=== PATIENT | female | born 1960 | race Caucasian/White ===

== ENCOUNTER 2017-04-14 21:36 | Inpatient (IN) | payer MEDICARE, MEDICAID ==
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
--- NOTE | 2017-04-14 22:58 | RADIOLOGY REPORT (SQ) ---
EXAM DESCRIPTION: CT HEAD WITHOUT COMPLETED DATE/TIME: 04/14/2017 10:32 pm REASON FOR STUDY: hx of TBI, confusion COMPARISON: None. TECHNIQUE: Axial images acquired through the brain without intravenous contrast. Images reviewed wi th bone, brain and subdural windows. Images stored on PACS. All CT scanners at this facility use dose modulation, iterative reconstruction, and/or weight based d osing when appropriate to reduce radiation dose to as low as reasonably achievable (ALARA). [facility]: Dose Right [facility]: CareDose [facility]: Dose Right [facility]: Teradose 4D [facility]: Smart [employer] RADIATION DOSE: Up-to-date CT equipment and radiation dose reduction techniques were employed. CTDIv ol: 48.6 mGy. DLP: 954 mGy-cm. mGy. LIMITATIONS: None. FINDINGS: VENTRICLES: Normal size and contour. CEREBRUM: No masses. No hemorrhage. No midline shift. No evidence for acute infarction. Normal gra y/white matter differentiation. No areas of low density in the white matter. CEREBELLUM: No masses. No hemorrhage. No alteration of density. No evidence for acute infarction. EXTRAAXIAL SPACES: No fluid collections. No masses. ORBITS AND GLOBE: No intra- or extraconal masses. Normal contour of globe without masses. CALVARIUM: No fracture. PARANASAL SINUSES: No fluid or mucosal thickening. SOFT TISSUES: No mass or hematoma. OTHER: No other significant finding. IMPRESSION: NORMAL BRAIN CT WITHOUT CONTRAST. EVIDENCE OF ACUTE STROKE: NO. COMMENT: Quality ID # [id number]: Final reports with documentation of one or more dose reduction techniques (e.g., Automated exposure control, adjustment of the mA and/or kV according to patient size, use of iterative reconstruction technique) TECHNICAL DOCUMENTATION: JOB ID: [id number] [employer]- All Rights Reserved
[2017-04-15] LABS: ABSOLUTE BASOPHILS # (AUTO) 0.1 10^3/uL (0.0-0.2); ABSOLUTE EOSINOPHILS # (AUTO) 0.2 10^3/uL (0.0-0.6); ABSOLUTE LYMPHOCYTES (AUTO) 3.1 10^3/uL (0.5-4.7); ABSOLUTE MONOCYTES (AUTO) 0.7 10^3/uL (0.1-1.4); BASOPHILS % (AUTO) 0.6 % (0-2); EOSINOPHILS % (AUTO) 2.2 % (0-6); HEMATOCRIT 37.7 % (36.0-47.0); HEMOGLOBIN 12.7 g/dL (12.0-15.5); HGB HCT DIFFERENCE 0.4; LYMPHOCYTES % (AUTO) 30.4 % (13-45); MEAN CORPUSCULAR HEMOGLOBIN 30.2 pg (27.0-33.4); MEAN CORPUSCULAR HGB CONC 33.6 g/dL (32.0-36.0); MEAN CORPUSCULAR VOLUME 90 fl (80-97); MONOCYTES % (AUTO) 6.9 % (3-13); RED CELL DISTRIBUTION WIDTH 13.8 % (11.5-14.0); SEGMENTED NEUTROPHILS % (AUTO) 59.9 % (42-78); WHITE BLOOD COUNT 10.1 10^3/uL (4.0-10.5)
[2017-04-15 00:17] LABS: ALANINE AMINOTRANSFERASE 28 U/L (9-52); ALBUMIN 3.9 g/dL (3.5-5.0); ALKALINE PHOSPHATASE 88 U/L (38-126); ANION GAP 12 (5-19); ASPARTATE AMINO TRANSFERASE 20 U/L (14-36); BILIRUBIN,DIRECT 0.3 mg/dL (0.0-0.4); BILIRUBIN,TOTAL 0.3 mg/dL (0.2-1.3); BLOOD UREA NITROGEN 5 mg/dL (7-20); CALCIUM 9.5 mg/dL (8.4-10.2); CARBON DIOXIDE 28 mmol/L (22-30); CHLORIDE 100 mmol/L (98-107); CREATININE RESULT 0.69 mg/dL (0.52-1.25); GLUCOSE 106 mg/dL (75-110); POTASSIUM 3.6 mmol/L (3.6-5.0); SODIUM 139.5 mmol/L (137-145); TOTAL PROTEIN 6.4 g/dL (6.3-8.2)
[2017-04-15] MEDS ORDERED: AMMONIA INHALANTS 10 AMPUL/BOX IH ONE (00:55)
[2017-04-15] MEDS ORDERED: ACETYLCYSTEINE INJ 6000 MG/30 ML IV ONE ×4 (01:12→06:13)
[2017-04-15] MEDS ORDERED: IPRATROPIUM/ALBUTEROL 0.5-2.5 MG/3 ML AMPUL NEB PRN (01:22)
[2017-04-15] MEDS ORDERED: MAG HYDROX/AL HYDROX/SIMETH SUSP 30 ML UDCUP PO PRN (01:22)
[2017-04-15] MEDS ORDERED: OLANZAPINE INJ/PF 10 MG SDV IM PRN (01:26)
[2017-04-15 01:43] LABS: PROTHROMBIN TIME 12.9 SEC (11.4-15.4)
[2017-04-15] MEDS ORDERED: NALOXONE HCL INJ 2 MG/2 ML DISP.SYRIN IV PRN (06:33)
--- NOTE | 2017-04-15 06:44 | PDOC H&P ---
History of Present Illness Admission Date/PCP: 04/15/17 01:35 Patient complains of: Altered mental status History of Present Illness: ROEL LIN is a 56 year old female with a past medical history of bipolar disorder, PTSD, anxiety, traumatic brain injury. Presenting via EMS after being found with hyperventilation and anxious state. She is initially uncooperative but reports to nurse taking "a bunch of Lunesta and Seroquel", tox screen positive for Tylenol greater than 100. She is referred to the hospitalist for suicide attempt and multidrug overdose. The patient's medication bag is at bedside which includes intranasal Narcan. During attempted interview the patient is somnolent IV Narcan is administered resulting in a hypervigilant state but remains uncooperative. Patient will not answer questions. Patient has no previous admissions to our facility. Past Medical History GI Medical History: Reports: Hiatal Hernia Psychiatric Medical History: Reports: Depression, General Anxiety Disorder, Post Traumatic Stress Disorder Traumatic Medical History: Reports: Traumatic Brain Injury Social History Smoking Status: Unknown if Ever Smoked Family History Family History: Other - Unobtainable Parental Family History Reviewed: No - Unobtainable Children Family History Reviewed: No - Unobtainable Sibling(s) Family History Reviewed.: No - Unobtainable Review of Systems ROS unobtainable: Due to mental status Physical Exam Vital Signs: Temp Pulse Resp BP Pulse Ox 19 122/72 99 04/15/17 03:01 04/15/17 02:36 04/15/17 03:01 Intake & Output 04/13/17 04/14/17 04/15/17 11:59 11:59 11:59 Weight 65.3 kg General appearance: PRESENT: no acute distress. ABSENT: cooperative Head exam: PRESENT: atraumatic, normocephalic Eye exam: PRESENT: conjunctiva pink, EOMI, PERRLA. ABSENT: scleral icterus Ear exam: PRESENT: normal external ear exam Mouth exam: PRESENT: moist, tongue midline Neck exam: ABSENT: carotid bruit, JVD, lymphadenopathy, thyromegaly Respiratory exam: PRESENT: clear to auscultation micheal. ABSENT: accessory muscle use, rales, rhonchi, wheezes Cardiovascular exam: PRESENT: RRR. ABSENT: diastolic murmur, rubs, systolic murmur Pulses: PRESENT: normal dorsalis pedis pul Vascular exam: PRESENT: normal capillary refill GI/Abdominal exam: PRESENT: normal bowel sounds, soft. ABSENT: distended, guarding, mass, organolmegaly, rebound, tenderness Rectal exam: PRESENT: deferred Extremities exam: PRESENT: calf tenderness Neurological exam: PRESENT: altered, awake, CN II-XII grossly intact. ABSENT: motor sensory deficit Psychiatric exam: PRESENT: appropriate affect, normal mood. ABSENT: homicidal ideation, suicidal ideation Skin exam: PRESENT: dry, intact, warm. ABSENT: cyanosis, rash Results Impressions: Head CT 04/14/17 22:12 IMPRESSION: NORMAL BRAIN CT WITHOUT CONTRAST. EVIDENCE OF ACUTE STROKE: NO. Assessment & Plan - Diagnosis (1) Acetaminophen overdose Qualifiers: Encounter type: initial encounter Injury intent: undetermined intent Qualified Code(s): T39.1X4A - Poisoning by 4-Aminophenol derivatives, undetermined, initial encounter Is this a current diagnosis for this admission?: Yes Plan: ICU admission, mental health consult, N-acetylcysteine, follow-up acetaminophen level, LFTs, INR. (2) Overdose of antipsychotic Is this a current diagnosis for this admission?: Yes Plan: ICU admission, telemetry monitoring, mental health consult follow-up chemistry. (3) Overdose of opiate or related narcotic Is this a current diagnosis for this admission?: Yes Plan: ICU admission, supportive care, Narcan as needed, mental health consult and referral - Time Time Spent: 50 to 70 Minutes - Inpatient Certification Medical Necessity: Need Close Monitoring Due to Risk of Patient Decompensation
[2017-04-15 07:20] LABS: APPEARANCE,URINE CLEAR; BILIRUBIN,URINE NEGATIVE (NEGATIVE); GLUCOSE, URINE 50 mg/dL (NEGATIVE); KETONES,URINE 80 mg/dL (NEGATIVE); LEUKOCYTE ESTERASE,URINE NEGATIVE (NEGATIVE); NITRITE,URINE NEGATIVE (NEGATIVE); PROTEIN,URINE 30 mg/dL (NEGATIVE); URINE SPECIFIC GRAVITY 1.024; UROBILINOGEN,URINE NEGATIVE mg/dL (<2.0)
[2017-04-15 07:39] LABS: URINE BARBITURATES SCREEN NEGATIVE; URINE METHADONE SCREEN NEGATIVE; URINE PHENCYCLIDINE SCREEN NEGATIVE
[2017-04-15 07:46] LABS: ALANINE AMINOTRANSFERASE 29 U/L (9-52); ALBUMIN 4.1 g/dL (3.5-5.0); ALKALINE PHOSPHATASE 28 U/L (38-126); ASPARTATE AMINO TRANSFERASE 18 U/L (14-36); BILIRUBIN,DIRECT 0.2 mg/dL (0.0-0.4); BILIRUBIN,TOTAL 0.4 mg/dL (0.2-1.3); TOTAL PROTEIN 6.5 g/dL (6.3-8.2)
[2017-04-15 08:24] LABS: URINE OPIATES LOW UNCONFIRMED POSITIVE
--- NOTE | 2017-04-15 08:43 | Progress Note ---
Provider Note Provider Note: Patient admitted early this morning: Chart reviewed, patient examined. 56-year- old female with history of bipolar disorder, PTSD, anxiety, traumatic brain injury. She presented via EMS after being found to be hyper ventilation and anxious state. She was initially uncooperative but did report to the nurse that she took" a bunch of Lunesta and Seroquel", tox screen was positive for Tylenol greater than 100. EKG revealed normal sinus rhythm at 79 bpm, QTc 455. Head CT scan was negative for acute abnormalities. She was admitted to to the ICU on the hospitalist service for suicide attempt and multi drug overdose. She has been started on N-acetylcysteine with plans to follow-up acetaminophen levels, LFTs, INRs. Psychiatry will be consulted and will see the patient when able. Plan as per H&P IVFs; N-acetylcysteine; repeat labs; Suicide precautions; bedside sitter; pysch consult
--- NOTE | 2017-04-15 09:16 | EKG REPORT ---
SEVERITY:- NORMAL ECG - SINUS RHYTHM : Confirmed by: Jamir Clarke 15-Apr-2017 09:15:46
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
[2017-04-15] MEDS ORDERED: INFLUENZA ADLT QUAD (36MOS+) 2017-18 VAC 0.5 ML SYR IM PRN (10:02)
[2017-04-15] MEDS: DOCUSATE SODIUM 100 MG CAPSULE PO SCH ×2 (10:11→17:34)
[2017-04-15] MEDS: HEPARIN SOD (PORCINE) 5,000 UNIT/ML 1 ML SYRINGE SUBCUT SCH ×3 (10:11→21:42)
[2017-04-15] MEDS ORDERED: ACETYLCYSTEINE IV ONE (11:00)
[2017-04-15] MEDS ORDERED: DEXTROSE 5% IV ONE (11:00)
[2017-04-15] MEDS ORDERED: WATER IV ONE (11:00)
[2017-04-15] MEDS: LORAZEPAM INJ 2 MG/1 ML VIAL IV PRN (16:42)
[2017-04-15] MEDS: NORMAL SALINE 1000 ML 1,000 ML IV SCH ×2 (16:48→20:25)
--- NOTE | 2017-04-15 16:57 | PSYCHOLOGICAL NOTE ---
Psych Note - Psych Note Psych Note: Patient is a 56-year-old female who presented to [facility] ER due to suspected polypharmacy overdose with unknown intent. Patient was admitted to the hospitalist services in ICU for critical care and telemetry management. Reviewed patient EMR in preparation for evaluation. Patient was noted by provider and nursing staff to continue to be agitated and disoriented. Patient will be evaluated at a later time. Patient is recommended to continue under involuntary commitment for further evaluation and disposition. I consulted with Dr. Otoole in regards to the care and management of this patient.
[2017-04-16 02:14] LABS: ALANINE AMINOTRANSFERASE 30 U/L (9-52); ALBUMIN 3.4 g/dL (3.5-5.0); ALKALINE PHOSPHATASE 85 U/L (38-126); ASPARTATE AMINO TRANSFERASE 16 U/L (14-36); BILIRUBIN,DIRECT 0.3 mg/dL (0.0-0.4); BILIRUBIN,TOTAL 0.6 mg/dL (0.2-1.3); TOTAL PROTEIN 5.6 g/dL (6.3-8.2)
[2017-04-16 05:29] LABS: ABSOLUTE BASOPHILS # (AUTO) 0.1 10^3/uL (0.0-0.2); ABSOLUTE EOSINOPHILS # (AUTO) 0.1 10^3/uL (0.0-0.6); ABSOLUTE LYMPHOCYTES (AUTO) 2.2 10^3/uL (0.5-4.7); ABSOLUTE MONOCYTES (AUTO) 0.6 10^3/uL (0.1-1.4); ABSOLUTE NEUT (AUTO) 8.8 10^3/uL (1.7-8.2); BASOPHILS % (AUTO) 0.6 % (0-2); EOSINOPHILS % (AUTO) 0.8 % (0-6); HEMATOCRIT 38.7 % (36.0-47.0); HEMOGLOBIN 13.2 g/dL (12.0-15.5); HGB HCT DIFFERENCE 0.9; MEAN CORPUSCULAR HGB CONC 34.2 g/dL (32.0-36.0); MEAN CORPUSCULAR VOLUME 88 fl (80-97); MONOCYTES % (AUTO) 5.3 % (3-13); RED BLOOD COUNT 4.41 10^6/uL (3.72-5.28); RED CELL DISTRIBUTION WIDTH 13.6 % (11.5-14.0); SEGMENTED NEUTROPHILS % (AUTO) 74.3 % (42-78); WHITE BLOOD COUNT 11.8 10^3/uL (4.0-10.5)
[2017-04-16] MEDS: HEPARIN SOD (PORCINE) 5,000 UNIT/ML 1 ML SYRINGE SUBCUT SCH ×3 (05:43→21:50)
[2017-04-16] MEDS: NORMAL SALINE 1000 ML 1,000 ML IV SCH (05:45)
[2017-04-16 05:58] LABS: ALANINE AMINOTRANSFERASE 27 U/L (9-52); ALBUMIN 3.4 g/dL (3.5-5.0); ALKALINE PHOSPHATASE 93 U/L (38-126); ANION GAP 12 (5-19); ASPARTATE AMINO TRANSFERASE 19 U/L (14-36); BILIRUBIN,DIRECT 0.3 mg/dL (0.0-0.4); BILIRUBIN,TOTAL 0.6 mg/dL (0.2-1.3); BLOOD UREA NITROGEN 4 mg/dL (7-20); CALCIUM 9.2 mg/dL (8.4-10.2); CARBON DIOXIDE 22 mmol/L (22-30); CHLORIDE 111 mmol/L (98-107); CREATININE RESULT 0.54 mg/dL (0.52-1.25); GLUCOSE 115 mg/dL (75-110); POTASSIUM 3.7 mmol/L (3.6-5.0); SODIUM 144.7 mmol/L (137-145); TOTAL PROTEIN 5.8 g/dL (6.3-8.2)
[2017-04-16] MEDS: DOCUSATE SODIUM 100 MG CAPSULE PO SCH ×2 (10:48→17:44)
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
[2017-04-16] MEDS ORDERED: ACETAMINOPHEN 325 MG TABLET PO PRN (16:47)
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
[2017-04-16] MEDS: DIVALPROEX SODIUM 500 MG TAB.SR.24H PO SCH (20:06)
[2017-04-16] MEDS: BUSPIRONE HCL 10 MG TABLET PO SCH (21:49)
[2017-04-16] MEDS: LORAZEPAM INJ 2 MG/1 ML VIAL IV PRN (23:19)
[2017-04-17] MEDS: HEPARIN SOD (PORCINE) 5,000 UNIT/ML 1 ML SYRINGE SUBCUT SCH ×3 (06:19→21:15)
[2017-04-17] MEDS: DIVALPROEX SODIUM 500 MG TAB.SR.24H PO SCH ×2 (11:10→18:22)
[2017-04-17] MEDS: AMLODIPINE BESYLATE 5 MG TABLET PO SCH (11:12)
[2017-04-17] MEDS: DOCUSATE SODIUM 100 MG CAPSULE PO SCH ×2 (11:13→17:13)
[2017-04-17] MEDS: BUSPIRONE HCL 10 MG TABLET PO SCH ×2 (11:13→21:15)
--- NOTE | 2017-04-17 14:51 | PDOC PROGRESS REPORT ---
Subjective Progress Note for:: 04/17/17 Subjective:: ROEL LIN is a 56 year old female with a past medical history of bipolar disorder, PTSD, anxiety, traumatic brain injury. She presented via EMS after being found with hyperventilating and anxious in her apartment by neighbor. She is initially uncooperative but reports to nurse taking "a bunch of Lunesta and Seroquel". Her tox screen was positive for Tylenol greater than 100. She is referred to the hospitalist for suicide attempt and multidrug overdose. During her initial evaluation by the ED as well as hospitalist, she was not cooperative. Later, she was more cooperative and provided more information to psychiatry. (See their note 04/16/2017) She has been in the ICU for the past 48 hours without a decline in clinical status. Psychiatry recommended continuing under involuntary commitment for further evaluation and disposition. They recommended starting Buspar 10 mg BID and depakote 500 mg BID. Currently, she is without complaints. Last evening was uneventful. She is still asking to go outside and smoke. Physical Exam Vital Signs: Temp Pulse Resp BP Pulse Ox 99.1 F 82 19 160/98 H 97 04/17/17 12:00 04/17/17 12:00 04/17/17 12:00 04/17/17 12:00 04/17/17 12:00 Intake & Output 04/16/17 04/17/17 04/18/17 06:59 06:59 06:59 Intake Total 5949 1395 Output Total 7200 4350 Balance -1251 -2955 Weight 64.5 kg 61.9 kg General appearance: PRESENT: no acute distress, well-developed, well-nourished Head exam: PRESENT: atraumatic, normocephalic Eye exam: PRESENT: conjunctiva pink, EOMI, PERRLA. ABSENT: scleral icterus Neck exam: ABSENT: carotid bruit, JVD, lymphadenopathy, thyromegaly Respiratory exam: PRESENT: clear to auscultation micheal. ABSENT: rales, rhonchi, wheezes Cardiovascular exam: PRESENT: RRR. ABSENT: diastolic murmur, rubs, systolic murmur GI/Abdominal exam: PRESENT: normal bowel sounds, soft. ABSENT: distended, guarding, mass, organolmegaly, rebound, tenderness Neurological exam: PRESENT: alert, awake, oriented to person, oriented to place , oriented to time, oriented to situation, CN II-XII grossly intact. ABSENT: motor sensory deficit Psychiatric exam: PRESENT: appropriate affect, normal mood. ABSENT: homicidal ideation, suicidal ideation Skin exam: PRESENT: dry, intact, warm. ABSENT: cyanosis, rash Results Laboratory Results: 04/16/17 05:12 04/16/17 05:12 Impressions: Head CT 04/14/17 22:12 IMPRESSION: NORMAL BRAIN CT WITHOUT CONTRAST. EVIDENCE OF ACUTE STROKE: NO. Assessment & Plan - Diagnosis (1) Acetaminophen overdose Qualifiers: Encounter type: subsequent encounter Injury intent: undetermined intent Qualified Code(s): T39.1X4D - Poisoning by 4-Aminophenol derivatives, undetermined, subsequent encounter Is this a current diagnosis for this admission?: Yes Plan: Her acetaminophen level was less than 10, yesterday. Transaminases have been normal. (2) Overdose of antipsychotic Is this a current diagnosis for this admission?: Yes Plan: She repeatedly told the psychiatrist that she simply wanted to go to sleep. She is not suicidal, but seemed to be at risk for self-harm yesterday. Today, she is much calmer and more cooperative. Currently, I am awaiting psychiatry final recommendations regarding her disposition. (3) Overdose of opiate or related narcotic Is this a current diagnosis for this admission?: Yes Plan: See above. (4) Tobacco abuse Is this a current diagnosis for this admission?: Yes Plan: Recommended smoking cessation. She declined a nicotine patch - Time Time Spent with patient: 15-24 minutes Within: within 24 hours - Inpatient Certification Based on my medical assessment, after consideration of the patient's comorbidities, presenting symptoms, or acuity I expect that the services needed warrant INPATIENT care.: Yes I certify that my determination is in accordance with my understanding of Medicare's requirements for reasonable and necessary INPATIENT services [42 CFR 412.3e].: Yes Medical Necessity: Risk of Complication if Not Cared For in Hospital
[2017-04-17] MEDS: CALCIUM CARBONATE 500 MG TAB.CHEW PO PRN (17:13)
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
[2017-04-18] MEDS: HEPARIN SOD (PORCINE) 5,000 UNIT/ML 1 ML SYRINGE SUBCUT SCH (05:40)
[2017-04-18] MEDS: DIVALPROEX SODIUM 500 MG TAB.SR.24H PO SCH (07:04)
[2017-04-18] MEDS: AMLODIPINE BESYLATE 5 MG TABLET PO SCH (09:45)
[2017-04-18] MEDS: DOCUSATE SODIUM 100 MG CAPSULE PO SCH (09:45)
[2017-04-18] MEDS: BUSPIRONE HCL 10 MG TABLET PO SCH (09:45)
[2017-04-18] MEDS: CALCIUM CARBONATE 500 MG TAB.CHEW PO PRN (09:57)
--- NOTE | 2017-04-18 10:17 | PDOC PROGRESS REPORT ---
Subjective Progress Note for:: 04/18/17 Physical Exam Vital Signs: Temp Pulse Resp BP Pulse Ox 98.1 F 73 18 139/79 H 95 04/18/17 08:00 04/18/17 08:05 04/18/17 08:00 04/18/17 08:00 04/18/17 08:00 Intake & Output 04/17/17 04/18/17 04/19/17 06:59 06:59 06:59 Intake Total 1395 650 Output Total 4350 1550 Balance -2955 -900 Weight 61.9 kg 60.8 kg Results Laboratory Results: 04/16/17 05:12 04/16/17 05:12 Impressions: Head CT 04/14/17 22:12 IMPRESSION: NORMAL BRAIN CT WITHOUT CONTRAST. EVIDENCE OF ACUTE STROKE: NO. Assessment & Plan - Diagnosis (1) Acetaminophen overdose Qualifiers: Encounter type: subsequent encounter Injury intent: undetermined intent Qualified Code(s): T39.1X4D - Poisoning by 4-Aminophenol derivatives, undetermined, subsequent encounter Is this a current diagnosis for this admission?: Yes Plan: Patient is doing well. She is stable for discharge to inpatient psychiatric facility from medical standpoint if deemed necessary by psychiatry. (2) Overdose of antipsychotic Is this a current diagnosis for this admission?: Yes Plan: See above (3) Overdose of opiate or related narcotic Is this a current diagnosis for this admission?: Yes Plan: No evidence for respiratory depression (4) Bipolar disorder Is this a current diagnosis for this admission?: Yes (5) Traumatic brain injury Is this a current diagnosis for this admission?: Yes (6) Anxiety Is this a current diagnosis for this admission?: Yes - Time Time Spent with patient: 15-24 minutes - Inpatient Certification Medical Necessity: Need Close Monitoring Due to Risk of Patient Decompensation - Plan Summary Plan Summary: Await psychiatry reevaluation. Patient is medically cleared to be discharged from inpatient care medical standpoint
[2017-04-18 12:04] VITALS: BP 143/80
--- NOTE | 2017-04-18 12:40 | PDOC DISCHARGE SUMMARY ---
General - Admit/Disc Date/PCP Admission Date/Primary Care Provider: 04/15/17 01:35 Discharge Date: 04/18/17 - Discharge Diagnosis (1) Acetaminophen overdose Is this a current diagnosis for this admission?: Yes Summary: Treated with N-acetylcysteine. (2) Overdose of antipsychotic Is this a current diagnosis for this admission?: Yes (3) Overdose of opiate or related narcotic Is this a current diagnosis for this admission?: Yes (4) Bipolar disorder Is this a current diagnosis for this admission?: Yes (5) Traumatic brain injury Is this a current diagnosis for this admission?: Yes (6) Anxiety Is this a current diagnosis for this admission?: Yes - Additional Information Discharge Diet: Cardiac Discharge Activity: Activity As Tolerated Home Medications: Albuterol Sulfate [Proair HFA] 2 puff IH Q6HP PRN 04/17/17 Cetirizine HCl [Zyrtec 10 mg Tablet] 10 mg PO DAILY 04/17/17 Cyclosporine 0.05% Oph Emulsio [Restasis 0.05% Oph Emulsion Pf 0.4 ml] 1 drop OU Q12 04/17/17 Dextromethorphan HBr/Quinidine [Nuedexta 20-10 mg Capsule] 1 cap PO Q12 Diazepam [Valium] 10 mg PO TIDP PRN 04/17/17 Ergocalciferol (Vitamin D2) [Vitamin D2] 50,000 units PO MO@1000 04/17/17 Hydrocodone/Acetaminophen [[place] 7.5-325 mg Tablet] 1 tab PO QIDP PRN 04/17/17 Lubiprostone [Amitiza 24 Mcg Capsule] 24 mcg PO Q12 04/17/17 Meclizine HCl [Antivert 25 mg Tablet] 25 mg PO Q8 04/17/17 Prazosin HCl [Minipress] 1 mg PO QHS 04/17/17 Quetiapine Fumarate [Seroquel Xr] 50 mg PO QHS 04/17/17 Rosuvastatin Calcium [Crestor 20 mg Tablet] 20 mg PO QHS 04/17/17 Amlodipine Besylate [Norvasc 5 mg Tablet] 5 mg PO DAILY #30 tablet 04/18/17 Buspirone HCl [Buspar 10 mg Tablet] 10 mg PO Q12 #60 tablet 04/18/17 Carbamazepine [Tegretol Xr 100 mg Tab.sr] 500 mg PO Q12 #60 tab.sr.12h 04/18/17 Flu Vacc [id number] [id number] Up/Pf [Fluzone Adlt Quad [id number] Vac 0.5 ml Syr] 0.5 ml IM .DISCHARGE PRN disp.syrin 04/18/17 History of Present Illness History of Present Illness: ROEL LIN is a 56 year old female who has a history of traumatic brain injury as well as bipolar disorder and anxiety who presented after being found by EMS with hyperventilation and very anxious. The patient's neighbor found her uncooperative and tremulous. The patient reported to the nurse that she took a bunch of Lunesta and Seroquel. Patient has a tox screen positive for Tylenol greater than 100 and the patient was admitted for suicide attempt from polysubstance. Patient also has a history of heavy narcotics and was noted to have intranasal Narcan in her home medication bag. Hospital Course Hospital Course: 56-year-old female with history of traumatic brain disorder as well as bipolar disorder, PTSD and anxiety who presented after being found by the neighbor being very anxious, confused and tremulous. The patient reports taking a handful of medications that included Lunesta, Seroquel and pain medications. The patient was admitted to the intensive care unit and was started on N- acetylcysteine because of elevated Tylenol level. She did well with this and had no problems with liver damage. The patient also did by report take narcotics and was monitored closely but did not require any Narcan. The patient was seen by psychiatry after being made an involuntary commitment because of the suicide attempt. The patient improved and no longer was suicidal. Psychiatry recommended starting the patient on BuSpar and Tegretol which was done. She will be sent home on those medications in addition to her usual outpatient medications. Patient does have a traumatic brain injury but appears to be competent and agrees to safety. Physical Exam Vital Signs: Temp Pulse Resp BP Pulse Ox 99.1 F 76 15 143/80 H 98 04/18/17 12:00 04/18/17 12:00 04/18/17 12:00 04/18/17 12:00 04/18/17 12:00 Intake & Output 04/17/17 04/18/17 04/19/17 06:59 06:59 06:59 Intake Total 1395 650 300 Output Total 4350 1550 400 Balance -2955 -900 -100 Weight 61.9 kg 60.8 kg General appearance: PRESENT: no acute distress Eye exam: PRESENT: conjunctiva pink. ABSENT: scleral icterus Mouth exam: PRESENT: moist, tongue midline Neck exam: ABSENT: JVD Respiratory exam: PRESENT: clear to auscultation micheal. ABSENT: rales, rhonchi, wheezes Cardiovascular exam: PRESENT: RRR. ABSENT: diastolic murmur, rubs, systolic murmur GI/Abdominal exam: PRESENT: normal bowel sounds, soft. ABSENT: distended, guarding, mass, organolmegaly, rebound, tenderness Extremities exam: PRESENT: full ROM. ABSENT: calf tenderness, clubbing, pedal edema Neurological exam: PRESENT: alert, awake, oriented to person, oriented to place , oriented to time, oriented to situation, CN II-XII grossly intact. ABSENT: motor sensory deficit Psychiatric exam: PRESENT: appropriate affect Skin exam: PRESENT: dry, intact, warm. ABSENT: cyanosis, rash Results Laboratory Results: 04/16/17 05:12 04/16/17 05:12 Impressions: Head CT 04/14/17 22:12 IMPRESSION: NORMAL BRAIN CT WITHOUT CONTRAST. EVIDENCE OF ACUTE STROKE: NO. Qualifiers PATEINT BEING DISCHARGED WITH ANY OF THE FOLLOWING DIAGNOSIS?: No Plan Discharge Plan: Patient is discharged home. Will follow up with primary care in 1-2 weeks. Time Spent: Greater than 30 Minutes
[2017-04-18] MEDS ORDERED: CARBAMAZEPINE 100 MG TAB.SR.12H PO ONE (13:00)
--- NOTE | 2017-04-18 13:24 | PSYCHOLOGICAL NOTE ---
Psych Note - Psych Note Psych Note: Patient is a 56 year old female who has been in ICU and to hospitalist services due to potential polypharm overdose of unknown intent. She does have a documented TBI. 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 She identified she sees Zuleika Carrasco at [facility] for medication management. She noted she is supposed to be taking Nuedexta for stuttering and Prazosin for sleep due to her TBI. She further stated [facility] recently started her on Seroquel Extended Release 50MG QHS. She reported she sees Yomaira at the [facility] for therapy. She stated her PCM is Nida Kelley at [facility]. She denied current SI and commented "I made a mistake, I wasn't feeling good and I didn't know how to deal." She stated her plan if discharged today would be to give her dog a big hug and then spend time with her neighbor whose son is home visiting. Patient was alert and oriented to person, place, time, and situation. Mood was euthymic with congruent and brighter affect. She denied current SI/HI, admitted to making a mistake, and talked about spending time with her dog and neighbors today so will not be alone). She did not appear to be responding to internal stimuli AEB fair eye contact, staying on topic and answering questions appropriately when addressed. Thought processes are linear and organized. Conversational speech included minimal stuttering which is likely baseline due to TBI. Intellectual abilities are estimated to be average. Insight, judgment and impulse control are fair AEB knowledge of TBI and acknowledgment of what got her to ICU and why. Informed by attending nurse patient had not been getting Depakote because patient reported it increased her restless leg syndrome. Another medication recommendation was provided to hospitalist. 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 Recommendation to rescind IVC. She does not meet [place] G.S[place] 122C IVC criteria. She denied current SI/HI and talked about hugging her dog and wanting to spend time with the neighbor family today (future oriented thinking). Patient provided with both MCM numbers. Included on this same sheet was written documentation to follow up with Zuleika at [facility] elijah and suggested doing a walk-in first thing Saturday (04/22/17) morning. Also verbalized all of this to patient. Consulted with Dr. Otoole regarding the management and care of patient. Attending hospitalist in agreement with recommendations.
[2017-04-18] MEDS ORDERED: CARBAMAZEPINE 100 MG TAB.SR.12H PO SCH (22:00)
== END 2017-04-18 13:30 | disposition home or self-care (01) | DRG 918 ==
LOC: ER 21:36 → EH 04-15 01:35 → ICU 04-15 04:25
PROVIDERS: ADMIT Internal Medicine; ATTEND Internal Medicine
PROC: 3E0F73Z Introduction of Anti-inflammatory into Respiratory Tract, Via Natural or Artificial Opening (ICD-10-PCS; principal; 2017-04-15)
DX: T39.1X2A Poisoning by 4-Aminophenol derivatives, intentional self-harm, initial encounter (principal); T42.6X2A Poisoning by other antiepileptic and sedative-hypnotic drugs, intentional self-harm, initial encounter; T43.592A Poisoning by other antipsychotics and neuroleptics, intentional self-harm, initial encounter; T40.602A Poisoning by unspecified narcotics, intentional self-harm, initial encounter; F31.9 Bipolar disorder, unspecified; F41.9 Anxiety disorder, unspecified; F43.10 Post-traumatic stress disorder, unspecified; Y92.039 Unspecified place in apartment as the place of occurrence of the external cause; Z87.820 Personal history of traumatic brain injury; Z60.2 Problems related to living alone
CPT/HCPCS: 36415; 70450; 80053; 80076; 80307; 81001; 82962; 85025; 85610; 93005; 93010; 99285; J0132; J1644; J2060; J3490; J7030; J7060

== ENCOUNTER 2017-08-08 02:25 | Emergency (ER) | payer MEDICARE, MEDICAID ==
[2017-08-08] MEDS ORDERED: PREDNISONE 20 MG TABLET PO ONE (02:49)
[2017-08-08] MEDS ORDERED: DIPHENHYDRAMINE HCL 50 MG/ML VIAL IM ONE (02:49)
--- NOTE | 2017-08-08 02:53 | ER Document Report ---
ED General - General Chief Complaint: Allergic Reaction Stated Complaint: POSSIBLE ALLERGIC REACTION Time Seen by Provider: 08/08/17 02:44 Notes: Patient is 56-year-old female who presents with complaint of pruritic rash. Says started on her but lower back and she is now developed welts over her neck and and over her chin. No difficulty breathing. She felt as if her throat was itchy. No change in the sound of her voice. She says it first started when she was taken her dog for a walk outside. She says she is unsure if she was bit by ants her baby was exposed to a cat outside. She has no other complaints at this time. She applied Benadryl cream. Did not take oral Benadryl. TRAVEL OUTSIDE OF THE [place] IN LAST 30 DAYS: No - Related Data Allergies/Adverse Reactions: haloperidol Allergy (Unknown, Verified 04/15/17 07:03) NSAIDS (Non-Steroidal Anti-Inflamma Allergy (Unknown, Verified 04/15/17 07:03) Past Medical History - Social History Smoking Status: Current Every Day Smoker Frequency of alcohol use: None Drug Abuse: None Family History: Reviewed & Not Pertinent, Other - Unobtainable Renal/ Medical History: Denies: Hx Peritoneal Dialysis GI Medical History: Reports: Hx Hiatal Hernia Psychiatric Medical History: Reports: Hx Depression, Hx Post Traumatic Stress Disorder Traumatic Medical History: Reports: Hx Traumatic Brain Injury - Immunizations Hx Diphtheria, Pertussis, Tetanus Vaccination: Yes Review of Systems - Review of Systems Notes: My Normal Review Basic REVIEW OF SYSTEMS: CONSTITUTIONAL : Denies fever, chills, or sweats. Denies recent illness. EENT: Some itching in throat. RESPIRATORY: Denies cough, cold, or chest congestion. Denies shortness of breath, difficulty breathing, or wheezing. GASTROINTESTINAL: Denies nausea, vomiting, or diarrhea. MUSCULOSKELETAL: Denies neck or back pain or joint pain or swelling. SKIN: Pruritic rash NEUROLOGICAL: Denies altered mental status or loss of consciousness. Denies headache. Denies weakness or paralysis or loss of use of either side. Denies problems with gait or speech. Denies sensory or motor loss. ALL OTHER SYSTEMS REVIEWED AND NEGATIVE. Physical Exam - Vital signs Vitals: Temp Pulse Resp BP Pulse Ox 99.1 F 100 20 126/81 H 99 08/08/17 02:33 08/08/17 02:33 03/15/18 02:33 08/08/17 02:33 08/08/17 02:33 - Notes Notes: General Appearance: Well nourished, alert, cooperative, no acute distress, no obvious discomfort. Well-appearing. Vitals: reviewed, See vital signs table. Head: no swelling or tenderness to the head Eyes: PERRL, EOMI, Conjuctiva clear Mouth: No decreasd moisture. No glossal swelling. Throat: No tonsillar inflammation, No airway obstruction, No lymphadenopathy Neck: Supple, no neck tenderness, No thyromegaly Lungs: No wheezing, No rales, No rhonci, No accessory muscle use, good air exchange bilaterally. Heart: Normal rate, Regular rythm, No murmur, no rub Extremities: strength 5/5 in all extremities, good pulses in all extremities, no swelling or tenderness in the extremities, no edema. Skin: Hives like rash really over the gluteal region and lower back. She also has a few spots over her chin and along the right side of her neck. Rash is blanchable. It is pruritic. It is not painful. Neuro: speech clear, oriented x 3, normal affect, responds appropriately to questions. Course - Re-evaluation Re-evalutation: 08/08/17 04:07 Rash in the patient's buttocks and lower back has improved. She still has some rash on her chin. Her throat is clear. Tongue is no swelling. She has no wheezing. She looks very well. I feel she is safe to be discharged home. I encourage her to continue take Benadryl every 6 hours. I encourage her to take the prednisone as prescribed. I have prescribed an EpiPen and informed her to only use the EpiPen if she has tongue swelling, throat swelling, difficulty breathing, or if she feels her reaction is severe. I informed her she must return to ER immediately if she has to use at EpiPen. Patient is agreeable to plan will be discharged home. 08/08/17 04:08 Dictation of this chart was performed using voice recognition software; therefore, there may be some unintended grammatical errors. - Vital Signs Vital signs: Temp Pulse Resp BP Pulse Ox 99.1 F 100 20 126/81 H 99 08/08/17 02:33 08/08/17 02:33 08/08/17 02:33 08/08/17 02:33 08/08/17 02:33 Discharge - Discharge Clinical Impression: Allergic reaction Qualifiers: Encounter type: initial encounter Qualified Code(s): T78.40XA - Allergy, unspecified, initial encounter Condition: Good Disposition: HOME, SELF-CARE Additional Instructions: Please return to the ER immediately if you have to use the Epipen, have facial swelling, tongue swelling, throat swelling, difficulty breathing, or feel that your reaction is becoming severe. Please use the Epipen if you have any facial swelling, tongue swelling, or difficulty breathing. Please take Benadryl for itching and rash. Please finish out your dose of Prednisone. Follow-up with your doctor on Saturday for evaluation. Prescriptions: Epinephrine [Epipen 2-Suhail] 0.3 mg IM ASDIR PRN #1 packet PRN Reason: Prednisone 10 mg PO ASDIR #42 tablet
[2017-08-08 04:19] VITALS: BP 117/71
== END 2017-08-08 04:16 | disposition home or self-care (01) ==
LOC: ER 02:25
DX: L50.0 Allergic urticaria (principal); R09.89 Other specified symptoms and signs involving the circulatory and respiratory systems; F17.200 Nicotine dependence, unspecified, uncomplicated; Z88.8 Allergy status to other drugs, medicaments and biological substances
CPT/HCPCS: 99283; 96372; J1200; A9270; J7512